=== PATIENT | female | born 1980 | race Caucasian/White ===

== ENCOUNTER → 2021-03-28 | Outpatient (CLI) | payer OTHER ==
--- NOTE | 2021-03-28 12:49 | KCIC ---
Exam Date: 03/28/2021 8:35 AM MRI LEFT LOWER EXTREMITY JOINT WITHOUT Indication: Reason: CRUSHING INJURY OF LEFT LOWER LEG / Spl. Instructions: Injury 10 days ago. / Hist ory: Lt knee pain, swelling/LROM after leg was crushed between the boat dock.. TECHNIQUE: Routine multiplanar MR imaging of the knee was performed without contrast. FINDINGS: The medial and lateral menisci are intact and within normal limits for age. There is a high-grade partial or complete tear of the proximal medial collateral ligament with surrou nding soft tissue edema. The anterior cruciate ligament, posterior cruciate ligament, and lateral collateral ligament complex are intact. Patellofemoral extensor mechanism and popliteus tendon are within normal limits. No full thickness chondral defects are identified. Bone marrow demonstrates benign signal on all seq uences. No acute fracture is seen. Physiologic joint fluid is present. There is no popliteal cyst. There is nonspecific subcutaneous e yessica anteriorly. IMPRESSION: High-grade partial or complete tear of the proximal medial collateral ligament. Electronically signed by: Ac Horan MD (03/28/2021 12:47 PM) AUDIE
== END ==
LOC: KCIC MRI 08:23
PROVIDERS: ATTEND Orthopaedic Surgery
DX: S87.82XA Crushing injury of left lower leg, initial encounter (principal); X58.XXXA Exposure to other specified factors, initial encounter; Y93.89 Activity, other specified; Y92.89 Other specified places as the place of occurrence of the external cause; Y99.8 Other external cause status
CPT/HCPCS: 73721

== ENCOUNTER → 2021-04-13 | Outpatient (CLI) | payer OTHER ==
--- NOTE | 2021-04-13 13:00 | RAD ---
04/13/2021 Left lower extremity venous duplex study Clinical History: Left lower extremity edema following recent injury Technique: Using a combination of real time ultrasound imaging and color-flow and pulse Doppler imagi ng techniques, including spectral analysis, graded compression and augmentation, duplex evaluation of the deep venous system of the left lower extremity was performed. Multiple images were obtained. Findings: There is no sonographic evidence of deep venous thrombosis involving the visualized deep ve nous structures of the left lower extremity Impression: No evidence of deep venous thrombosis involving the left lower extremity Electronically signed by: Vance Lucia MD (04/13/2021 12:57 PM) [id number]
== END ==
LOC: US 12:21
PROVIDERS: ATTEND Orthopaedic Surgery
DX: S87.82XA Crushing injury of left lower leg, initial encounter (principal); M79.89 Other specified soft tissue disorders; X58.XXXA Exposure to other specified factors, initial encounter; Y93.89 Activity, other specified; Y92.89 Other specified places as the place of occurrence of the external cause; Y99.8 Other external cause status
CPT/HCPCS: 93971